=== PATIENT | male | born 1955 | race Hispanic/Latino ===

== ENCOUNTER 2018-07-31 14:19 | Emergency (ER) | payer SELFPAY ==
[~2018-07-31] VITALS: Ht 175.3 cm; Wt 86.2 kg
[2018-07-31] MEDS ORDERED: IBUPROFEN 200 MG TAB PO STA (15:01)
[2018-07-31] MEDS ORDERED: ONDANSETRON HCL 4 MG ORAL DISINTEGRATING TAB PO ONE (15:15)
[2018-07-31] MEDS ORDERED: HYDROCODONE/APAP 10MG-325MG TAB PO ONE ×2 (15:15)
--- NOTE | 2018-07-31 16:26 | Diagnostic Imaging Report ---
Exam: Right foot 3 views History: Pain Comparison: None. Findings: No acute, displaced fracture or dislocation. Appropriate alignment between the medial cuneiform and second metatarsal base in keeping with an intact Lisfranc ligament. Joint spaces are well-maintained. Mild degenerative posterior calcaneal spur. Soft tissues are unremarkable. Impression: 1. No acute osseous abnormality. Signed by: Dr. Naseem Morton M.D. on 07/31/2018 4:23 PM
== END 2018-07-31 17:14 | disposition home or self-care (01) ==
LOC: ER 14:19
DX: M79.671 Pain in right foot (principal); G57.61 Lesion of plantar nerve, right lower limb; F17.210 Nicotine dependence, cigarettes, uncomplicated
CPT/HCPCS: 73630; 99284; Q0162